=== PATIENT | female | born 1965 | race Caucasian/White ===

== ENCOUNTER 2016-06-24 09:30 | Observation (INO) | payer BC ==
[2016-06-22 14:25] LABS: BASOPHILS 0.2 %; BASOPHILS ABSOLUTE 0.02 10/3/uL (0.0-0.16); EOSINOPHILS 1.1 %; EOSINOPHILS ABSOLUTE 0.12 10/3/uL (0.0-0.53); HEMATOCRIT 46.2 % (36.0-48.0); HEMOGLOBIN 15.6 g/dL (12.0-16.0); IMMATURE GRANULOCYTES 0.3 %; IMMATURE GRANULOCYTES ABSOLUTE 0.03 10/3/uL (0.0-0.11); LYMPHOCYTES 31.3 %; LYMPHOCYTES ABSOLUTE 3.31 10/3/uL (0.67-4.30); MEAN CORPUS HGB CONC 33.8 g/dL (32.0-36.0); MEAN CORPUSCULAR VOLUME 94.7 fL (80-100); MONOCYTES 6.2 %; MONOCYTES ABSOLUTE 0.66 10/3/uL (0.21-1.20); NEUTROPHILS 60.9 %; NEUTROPHILS ABSOLUTE 6.45 10/3/uL (2.02-8.40); PLATELET COUNT 308 10/3/uL (150-400); RBC DISTRIBUTION WIDTH 13.8 % (12.0-16.0); RED CELL COUNT 4.88 10/6/uL (4.0-5.6); WHITE BLOOD CELLS 10.6 10/3/uL (4.5-10.5)
[2016-06-22 14:26] LABS: MANUAL DIFF NO %
[2016-06-22 14:44] LABS: BUN (BLOOD UREA NITROGEN) 13 MG/DL (6-23); CALCIUM, SERUM 9.4 MG/DL (8.5-10.4); CHLORIDE, SERUM 109 MMOL/L (96-112); CO2 (CARBON DIOXIDE) 26 MMOL/L (24-34); CREATININE 0.91 MG/DL (0.55-1.02); GFR AFRICAN AMERICAN 85 ML/MIN (>=60); GFR NON AFRICAN AMERICAN 74 ML/MIN (>=60); GLUCOSE, SERUM 96 MG/DL (60-99); POTASSIUM, SERUM 4.3 MMOL/L (3.5-5.3); SODIUM, SERUM 144 MMOL/L (135-148)
--- NOTE | ~2016-06-24 | OP ---
Record Of Operation [facility] [address] [place]. [address] NAME: JACKIE LEIJA : 67 STATUS : ADM Yenifer PAT#: [id number] AGE: 51 ADM/REG DATE : 06/24/16 MR#: [id number] REPORT SERV DATE: 06/24/16 DICTATED BY: PHI RODRIGUEZ DATE: 06/24/16 REPORT STATUS : Draft TRANSCRIBED BY: MODL DATE: 06/24/16 DATE OF PROCEDURE: 06/24/2016 PREOPERATIVE DIAGNOSIS: Bilateral lower extremity claudication with duplex indicating recurrence of the common iliac stenosis previously undergone common iliac stenting bilaterally. POSTOPERATIVE DIAGNOSIS: Severe recurrent stenosis on the left, common iliac proximally, and on the right side showing a moderate degree of stenosis. SURGERY PERFORMED: 1. Aortogram. 2. Bilateral extremity runoffs. 3. Right common iliac stent using a 7 x 22 iCAST stent. 4. Left common iliac stent using a 7 x 22 iCAST. SURGEON: Phi Rodriguez M.D. DESCRIPTION OF PROCEDURE: The patient was placed under IV sedation. Both groins were prepped and draped in a sterile fashion. Left femoral artery cannulated with ultrasound direction. Needle, wire, and sheath were placed. UF catheter was placed into the abdominal aorta and an aortogram done showing the both renals were patent. The aorta was patent. There were two kissing stents in the iliac, the left showing what appeared to be a quite severe stenosis, and the right side showing moderate. The UF was pulled down to the distal aorta. Runoff films were done on the right side, again showing the moderate stenosis of the proximal common iliac stent, approximately 60% to 70% stenosis, the left side showing probably 90% stenosis. Distally, the common iliac to the external and internal were patent. The common femoral, profunda, SFA, popliteal, two-vessel runoff were noted. On the left side, distal common, external, and internal were patent; common femoral, profunda, SFA, popliteal two-vessel runoff. With this finding, a second sheath was placed on the right side, so she now has two sheaths in each femoral artery. She was given 2500 units of heparin. A wire was placed in the right side up into the aorta. After adequate period of time, two 7 sheaths were placed and then both iliac stents were restented using a covered iCAST 7 x 22 stent. These were done simultaneously in a kissing stent-type technique. When this was completed, repeat film showing that the stents were widely patent. No residual stenosis noted. When this was completed, attempt was used to use an Accu-Seal closure device bilaterally. The left side did not work well, so therefore pressure and then pressure dressing applied; right side worked effectively and a moderate pressure dressing was then applied. The patient tolerated the procedure well. Estimated blood loss was 30 to 40 mL. She went to the recovery room in satisfactory condition. MG/MODL Phi Record Of [address] [address] NAME: JACKIE LEIJA : 67 STATUS : ADM Yenifer PAT#: [id number] AGE: 51 ADM/REG DATE : 06/24/16 MR#: [id number] REPORT SERV DATE: 06/24/16 DICTATED BY: PHI RODRIGUEZ DATE: 06/24/16 REPORT STATUS : Draft TRANSCRIBED BY: MODL DATE: 06/24/16 Jim Rodriguez / [id number] CC: Phi Rodriguez M.D.
[~2016-06-24 09:30] MED LIST: ASAB PO; LIPITOR20 PO; NORCO1 TA1 PO; VITAMIN D31000 UNIT PO
== END 2016-06-25 10:14 | disposition home or self-care (01) ==
LOC: SDC 09:30 → SDC/OF 13:00 → 2SO 17:59
PROVIDERS: Surgery Vascular Surgery
DX: I70.213 Atherosclerosis of native arteries of extremities with intermittent claudication, bilateral legs (principal); E78.00 Pure hypercholesterolemia, unspecified; E11.9 Type 2 diabetes mellitus without complications; J44.9 Chronic obstructive pulmonary disease, unspecified; Z90.49 Acquired absence of other specified parts of digestive tract; F17.210 Nicotine dependence, cigarettes, uncomplicated; I10 Essential (primary) hypertension
CPT/HCPCS: 37221; 75625; 75716; 80048; 85025; 93005; A9270-GY; C1760; C1769; C1874; C1894; G0378; J0690; J2250; J2370; J2720; J3010; Q9966